=== PATIENT | male | born 2000 | race Hispanic/Latino ===

== ENCOUNTER 2021-11-17 20:57 | Emergency (ER) | payer OTHER ==
[2021-11-17] MEDS ORDERED: HYDROcodone/Acetaminophen 5/325 mg Tablet ONE (21:56)
[2021-11-17] MEDS ORDERED: Ibuprofen 800 MG TAB ONE (21:56)
== END 2021-11-17 22:05 ==
LOC: NAV ERS 20:57
DX: S62.231A Other displaced fracture of base of first metacarpal bone, right hand, initial encounter for closed fracture (principal); X58.XXXA Exposure to other specified factors, initial encounter
CPT/HCPCS: 29125